=== PATIENT | male | born 1955 | race Hispanic/Latino ===

== ENCOUNTER → 2023-05-02 | Outpatient (CLI) | payer OTHER, MEDICARE ==
[~2023-05-02] MED LIST: REGADENOSON 0.4 MG/5 ML PF SYG IVP ONE; REGADENOSON 0.4 MG/5 ML PF SYG IVP SCH
== END | disposition home or self-care (01) ==
LOC: CANPRECLI → SHCH 08:17
PROVIDERS: ATTEND Internal Medicine Cardiovascular Disease
DX: R07.9 Chest pain, unspecified (principal); I25.10 Atherosclerotic heart disease of native coronary artery without angina pectoris
CPT/HCPCS: 78452; 96374; 93017; J2785; A9500 ×2

== ENCOUNTER 2025-03-18 21:38 | Emergency (ER) | payer OTHER, MEDICARE ==
[~2025-03-18] VITALS: Ht 170.2 cm; Wt 84.4 kg
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
[2025-03-18] MEDS: NEOMY SULF/BACITRA/POLYMYXIN B 1 EACH PACKET TP ONE (22:10)
[2025-03-18 22:15] VITALS: BP 158/73; PULSE 78; RESP 17; TEMP 98.5; O2SAT 99
== END 2025-03-18 22:15 | disposition home or self-care (01) ==
LOC: EDH 21:38
DX: T23.061A Burn of unspecified degree of back of right hand, initial encounter (principal); E11.9 Type 2 diabetes mellitus without complications; X08.8XXA Exposure to other specified smoke, fire and flames, initial encounter; Y93.89 Activity, other specified; Y92.89 Other specified places as the place of occurrence of the external cause; Y99.8 Other external cause status
CPT/HCPCS: 99283